=== PATIENT | male | born 1965 ===

== ENCOUNTER 2020-02-14 14:10 | Outpatient (CLI) | payer MEDICAID ==
--- NOTE | 2020-02-14 21:00 | Consultation ---
DATE OF CONSULTATION: 02/14/2020 GASTROENTEROLOGY CONSULTATION CONSULTING PHYSICIAN: Jose A Jasso MD CHIEF COMPLAINT: Abdominal pain. PAST MEDICAL HISTORY: 1. Asthma. 2. Kidney stones. 3. Peptic ulcer disease. 4. Giardia infection. PAST SURGICAL HISTORY: None. MEDICATION: Bentyl as needed. FAMILY HISTORY: Noncontributory. SOCIAL HISTORY: The patient denies any tobacco, alcohol, or drug abuse. REVIEW OF SYSTEMS: Positive for GERD, did have constipation and diarrhea, complained of acid reflux for three months. PHYSICAL EXAMINATION: VITAL SIGNS: Temperature 97.1. . HEENT: Normocephalic and atraumatic. Sclerae anicteric. NECK: Supple. No evidence of obvious lymphadenopathy. CARDIOVASCULAR: Regular rate and rhythm. Plus S1 and S2. LUNGS: Clear to auscultation bilaterally. ABDOMEN: Positive bowel sounds. Soft and nontender. No rebound. No guarding. No peritoneal sign. EXTREMITIES: No cyanosis. No clubbing. No edema. ASSESSMENT AND PLAN: This is a 54-year-old male who was referred for complaint of abdominal pain, prior history of GERD, prior history of peptic ulcer disease. The patient mentioned that Bentyl in the past worked for him. The patient was given a prescription for omeprazole 40 mg daily and Bentyl 20 mg p.o. every 8 hours as needed. The patient was recommended to have an endoscopy and colonoscopy, which we will schedule when the authorization is obtained. Jose A Jasso M.D. DR: AICHA JOB#: [id number] CC:
[2020-02-15] MEDS ORDERED: ACETAMINOPHEN325 M1 ORAL (07:59)
[2020-02-15] MEDS ORDERED: SINGULAIR10 MG ORAL (07:59)
[2020-02-15] MEDS ORDERED: LORATADINE10 M2 PO (07:59)
[2020-02-15] MEDS ORDERED: TRIUMEQ 600-501 EACH PO (07:59)
== END 2020-02-14 16:10 | disposition home or self-care (01) ==
LOC: PAN 14:10
DX: R10.9 Unspecified abdominal pain (principal); Z87.11 Personal history of peptic ulcer disease; Z87.442 Personal history of urinary calculi; K21.9 Gastro-esophageal reflux disease without esophagitis; K59.00 Constipation, unspecified; R19.7 Diarrhea, unspecified
CPT/HCPCS: G0463

== ENCOUNTER 2020-05-23 14:26 | Outpatient (CLI) | payer MEDICAID ==
[~2020-05-23 14:26] MED LIST: ACETAMINOPHEN325 M1 ORAL; LORATADINE10 M2 PO; SINGULAIR10 MG ORAL; TRIUMEQ 600-501 EACH PO
[2020-05-23 14:57] VITALS: BP 120/63
[2020-05-23] MEDS ORDERED: LEVSIN0.125 MG ORAL (15:00)
== END 2020-05-23 16:26 | disposition home or self-care (01) ==
LOC: PAN 14:26
DX: R10.9 Unspecified abdominal pain (principal)
CPT/HCPCS: 99212